=== PATIENT | female | born 1955 | race Caucasian/White ===

== ENCOUNTER 2025-02-23 14:12 | Emergency (ER) | payer OTHER, SELFPAY ==
[2025-02-23 14:14] VITALS: BP 143/93
[2025-02-23 15:01] VITALS: BMI 22.7
--- NOTE | 2025-02-23 17:34 | ED.GENMED ---
History of Present Illness
General
Chief Complaint: Head Injury
Source: patient and significant other
Exam Limitations: none
Time Seen by Provider: 02/23/25 16:34
Nursing documentation reviewed up to this point in time: agreed with
History of Present Illness
History of Present Illness:
SEE MDM
Past History
Past History
ED Past Medical History: Other (restless leg sydnrome, bladder issues)
ED Past Surgical History: Gynecological and Urological
Social History
Tobacco: Non-smoker
Alcohol: Occasional
Drug: None
Personal:
Living: with family
Employment: Not employed
Family History
Family History: Other (Sibling with kidney stone)
Review of Systems
Review of Systems
Allergies reviewed?: Yes
All Other Systems: Not applicable
Phy Exam
Physical Exam
Physical Exam:
GENERAL: Alert , in no apparent distress
HEAD: NCAT
No focal tenderness or swelling
NECK: no midline tenderness, active ROM intact, mild paraspinal muscle tenderness in the right
EYE: pupils equal and reactive, EOMs intact.
pt has visual johnson intact but she says she sees double at times; not consistently with R eye
ENT: o/p clr, mmm. no hemotympanum
CARDIAC: Regular rate and rhythm, no edema
LUNGS: Clear breath sounds bilaterally, no acute respiratory distress, no wheezes/rales/rhonchi
ABDOMEN: Soft, without focal tenderness, no r/g, no cvat
NEUROLOGICAL: Alert and oriented, no focal neuro deficits, CN intact, 5/5 strength, sensation intact
SKIN: Warm and dry,
MUSCULOSKELETAL: No edema, well perfused.
PSYCH: Normal and appropriate interaction.
Course
Orders/Labs/Results
Orders:
Orders
02/23/25 16:50
CT Cervical Spine W/o Iv Contr Urgent
Comment:
Reason For Exam: axial load neck pain
02/23/25 16:51
CT Head W/o Iv Contrast Urgent
Comment:
Reason For Exam: axial load head injury, double vision R eye
02/23/25 19:01
Acetaminophen [Tylenol] 1,000 mg PO NOW STA
02/23/25 19:08
Acetaminophen [Tylenol] 1,000 mg .ROUTE .STK-MED ONE
Vital Signs
Initial and Last Documented VS:
Initial Vital Signs
Temp Pulse Resp BP Pulse Ox
36.6 C 69 16 143/93 100
02/23/25 14:14 02/23/25 14:14 02/23/25 14:14 02/23/25 14:14 02/23/25 14:14
Last Documented Vital Signs
Temp Pulse Resp BP Pulse Ox
36.6 C 61 18 133/72 100
02/23/25 14:14 02/23/25 19:20 02/23/25 19:20 02/23/25 19:20 02/23/25 19:20
MDM/Problems Addressed
Differential Diagnosis Includes:
SEE MDM
MDM/Problems Addressed:
Note:
CHIEF COMPLAINT(S)
Blurry vision and eye discomfort following head trauma.
HISTORY OF PRESENT ILLNESS
The patient is a 69-year-old female who presented after experiencing head trauma when a kitchen shelf collapsed and dishes fell, striking her on the top of her head. This incident occurred earlier today. She did not lose consciousness but described
feeling stunned immediately afterward. Following the incident, she did not experience a headache; however, she noticed that her right eye became blurry and intermittently doubled her vision. The patient denied nausea and confusion but reported
feeling tired. There is slight discomfort in the neck and shoulders due to the impact. The patient has no history of previously diagnosed concussions.
The patients double vision, described as seeing two images side by side, was initially more pronounced earlier but is now accompanied by blurry visual perception when covering one eye. Physical attempts to assess vision revealed difficulty
distinguishing objects distinctly. She does not report any sensation of a curtain-like visual phenomenon or complete darkness. The patient uses reading glasses but experiences visual complications without them. Ocular pain is vague but noted as a
peculiar sensation without significant discomfort upon movement.
CHRONIC MEDICAL CONDITIONS SIGNIFICANTLY AFFECTING CARE
The patient has Restless Legs Syndrome (RLS) and takes pramipexole. Additionally, she uses desmopressin for bladder-related issues and methenamine for recurrent urinary tract infections.
REVIEW OF SYSTEMS
- Ocular: Reported blurry vision and intermittent double vision in the right eye.
- Neurological: Denies loss of consciousness; reports feeling stunned post-trauma and intermittent visual changes.
- Musculoskeletal: Neck and shoulder discomfort following the injury.
PHYSICAL EXAM
- Nursing notes reviewed and vital signs reviewed.
- Neurological:
- Difficulty with visual acuity tests suggesting issues in the right eye.
- Minor discomfort in eye movement, no pronounced pupil or extraocular muscle abnormalities.
- No facial numbness or weakness; intact gross motor function and coordination.
- Strength: 5/5 throughout; no deficits in upper and lower extremity strength.
- Reflexes: Normal.
- Sensation: Intact, without peculiarities in facial or limb sensation.
PLAN
- Head imaging to rule out intracranial injuries.
- Intraocular pressure check to investigate potential ocular involvement.
- Monitor and manage symptoms conservatively unless imaging or intraocular pressure checks yield concerning results.
DIFFERENTIAL DIAGNOSIS
The Differential Diagnosis includes, in no particular order and is not limited to:
1. Ocular contusion
2. Traumatic brain injury
3. Concussion
4. Subdural hematoma
5. Retinal detachment
6. Diplopia due to trauma
7. Orbital fracture
8. Increased intracranial pressure
9. Tension-type headache post-trauma
10. Cervical strain
Disposition:
SUMMARY OF ENCOUNTER
The patient, a 69-year-old female, was evaluated in the emergency department following head trauma sustained when struck by a heavy dish falling from a collapsed shelf. She presented with complaints of right eye blurry vision and intermittent double
vision post-injury. There was no loss of consciousness, and she reported intermittent dysthymia associated with specific eye movements. The patient�s visual acuity was intact upon examination, with her visual johnson remaining unaffected. The
symptoms primarily involved her right eye, as her left eye did not exhibit the same visual disturbances.
ASSESSMENT
The patient is assessed for potential complications related to head trauma, including ocular involvement. The primary concerns include the evaluation of traumatic injuries affecting her vision.
PLAN
The management plan includes arranging head imaging to rule out intracranial or ocular injuries. Intraocular pressure checks are also planned to evaluate any ocular involvement that may be contributing to her visual symptoms. I SPOKE WITH WHO FELT
THAT THIS WAS LIKELYR ELATED TO CONCUSSION AND WOULD LIKELY RESOLVE WITH CONCUSSION IMPROVEMENT. D/W ED ATTENDING DR OSORIO
MEDICAL DECISION MAKING
The patient presented with significant acute concerns related to potential complications from head trauma, including visual disturbances. The complexity of the case warranted imaging and intraocular pressure evaluation to rule out serious conditions
such as ocular contusion, increased intracranial pressure, or orbital fractures. No anticoagulation use was reported, simplifying initial patient management. Diagnostic tools were utilized to ensure comprehensive care in light of her symptoms and
age-related risk factors. ct was neg for any trauamtic findings; shows lordosis.
i did recommend they go to [facility], [facility] if they were uneasy about the blurriness or certainly if she had any vision lopss in the future
pt will see eye doctor tomorrow
*Pulse Oximetry
Patient hypoxic: no
Comment: 100
*Critical Care Note
Total Time (30-74mins, 75-104mins- exclusive of procedures): Not Applicable
ED Attending Note
-
Portions of this chart may have been created with voice recognition software.� Occasional wrong word or��sound alike� substitutions may have occurred due to the inherent limitations of voice recognition software.
Discharge Plan
Departure
Patient Disposition: Home (Routine Discharge)
Date of Disposition: 02/23/25
Time of Disposition: 19:06
Patient with high blood pressure during this ER visit?: No
Condition: Fair
Covid-19: Not Applicable
Discharge Problem:
Concussion
Instructions: Concussion, Adult (DC)
Prescriptions:
No Action
pantoprazole [Protonix] 40 MG tablet,delayed release (DR/EC)
40 mg PO DAILYPRN PRN (Reason: reflux)
solifenacin [Vesicare] 10 MG tablet
10 mg PO HS
carbidopa-levodopa 1 EACH tablet
2 ea PO HS
Patient Comments:
2 tabs at bedtime, may take extra 1 tab PRN
phenazopyridine 200 MG tablet
200 mg PO BID Qty: 0 0RF
methenamine hippurate 1 GRAM tablet
1 g PO BID Qty: 60 5RF
Referrals:
Nestor Guevara PA-C [Family Provider, Family Practice] - Follow up in 2-3 days
Activity Restrictions/Additional Instructions:
YOU SHOULD SEE AN EYE DOCTOR FOR FOLLOW UP WITH VISION CHANGES
THIS DOES NOT SEEM LIKE A RETINAL DETACHMENT BUT TRAUMA CAN CAUSE DETACHED RETINAS; YOU HAD NO LOSS OF VISION TODAY BUT SHOULD THAT OCCUR YOU NEED TO URGENTLY BE SEEN ([facility] HAS AN EYE EMERGENCY ROOM)
YOU LIKELY HAVE A CONCUSSION
YOUR CAT SCANS WERE NEGATIVE FOR TRAUMA
for this we recommend 248 hours of brain rest to help your brain heal and your headache improve.
also use tylenol every 6 hours, motrin every 8 hours as needed for pain.
for your neck, heat off and on as needed.
return to the er for: worsening pain, vomiting, confusion, weakness, numbness/tingling in arms or legs or any concerns.
Interventions
Interventions:
*Risk Screen - Suicide Last Done: 02/23/25 14:14
*General Assessment Last Done: 02/23/25 14:14
*Neglect/Abuse Screening Last Done: 02/23/25 15:01
*ED- Fall Risk Assessment Last Done: 02/23/25 15:01
*ED COVID-19 Vaccine History Last Done: 02/23/25 15:01
*Nursing Disposition Last Done: 02/23/25 19:27
ED- Neurological Assessment Last Done: 02/23/25 15:01
ED-Skin Assessment Last Done: 02/23/25 15:01
Discharge Date and Time
Discharge Date/Time: 02/23/25 19:28
Print Language: TUVALU[place]
[2025-02-23] MEDS: TYLENOL 1000 MG PO (19:06)
[2025-02-23 19:20] VITALS: BP 133/72
== END 2025-02-23 19:28 | disposition home or self-care (01) ==
LOC: EMR 14:12
PROVIDERS: EMERGENCY PHYSICIAN Emergency Medicine; FAMILY PHYSICIAN Physician Assistant Medical
DX: S06.0X0A Concussion without loss of consciousness, initial encounter (principal); W20.8XXA Other cause of strike by thrown, projected or falling object, initial encounter; G25.81 Restless legs syndrome
CPT/HCPCS: 99284; 70450; 72125